=== PATIENT | male | born 1980 | race Caucasian/White ===

== ENCOUNTER 2016-09-01 16:40 | Emergency (ER) | payer OTHER ==
[2016-09-01 17:26] LABS: HEMOGLOBIN 16.9 gm/dl (14.0-17.5); RED BLOOD COUNT 5.74 M/UL (4.20-5.50); WHITE BLOOD COUNT 7.4 K/UL (4.5-11.0)
[2016-09-01 17:44] LABS: BUN/CREATININE RATIO 8 (0-10)
[2016-09-16] MEDS ORDERED: PRINIVIL10 MG PO (05:07)
[2016-09-16] MEDS ORDERED: PROTONIX 40 MG40 M1 PO (05:08)
[2016-09-16] MEDS ORDERED: PROMETHAZINE HC25 M1 PO (05:09)
[2016-09-16] MEDS ORDERED: FLEXERIL 10 MG10 MG PO (05:42)
[2016-09-17] MEDS ORDERED: BENTYL 10MG CAP10 MG PO (15:33)
[2016-09-17] MEDS ORDERED: PROTONIX40 MG PO (15:34)
[2016-09-17] MEDS ORDERED: CLONIDINE HCL0.1 MG PO (15:39)
== END 2016-09-01 18:34 | disposition home or self-care (01) ==
LOC: ER1 16:40
PROVIDERS: Physician Assistant Medical
DX: S29.012A Strain of muscle and tendon of back wall of thorax, initial encounter (principal); I10 Essential (primary) hypertension; F17.210 Nicotine dependence, cigarettes, uncomplicated; X50.9XXA Other and unspecified overexertion or strenuous movements or postures, initial encounter; Y93.89 Activity, other specified
CPT/HCPCS: 36415; 72072; 80053; 85025; 96372; 99284; C9113; J2270; J2405

== ENCOUNTER 2016-09-01 23:55 | Emergency (ER) | payer OTHER ==
[2016-09-02 02:24] LABS: HEMOGLOBIN 15.8 gm/dl (14.0-17.5); RED BLOOD COUNT 5.36 M/UL (4.20-5.50)
[2016-09-02 02:35] LABS: WHITE BLOOD COUNT 12.1 K/UL (4.5-11.0)
[2016-09-16] MEDS ORDERED: PRINIVIL10 MG PO (05:07)
[2016-09-16] MEDS ORDERED: PROTONIX 40 MG40 M1 PO (05:08)
[2016-09-16] MEDS ORDERED: PROMETHAZINE HC25 M1 PO (05:09)
[2016-09-16] MEDS ORDERED: FLEXERIL 10 MG10 MG PO (05:42)
[2016-09-17] MEDS ORDERED: BENTYL 10MG CAP10 MG PO (15:33)
[2016-09-17] MEDS ORDERED: PROTONIX40 MG PO (15:34)
[2016-09-17] MEDS ORDERED: CLONIDINE HCL0.1 MG PO (15:39)
== END 2016-09-02 10:08 ==
LOC: ER1 23:55
PROVIDERS: Student in an Organized Health Care Education/Training Program
DX: K92.2 Gastrointestinal hemorrhage, unspecified (principal); N28.9 Disorder of kidney and ureter, unspecified; Z90.49 Acquired absence of other specified parts of digestive tract; F17.210 Nicotine dependence, cigarettes, uncomplicated
CPT/HCPCS: 36415; 80053; 82150; 83690; 85025; 96361; 96374; 96375; 99284; J7030

== ENCOUNTER → 2021-10-17 | Outpatient (CLI) | payer OTHER ==
[~2021-10-17] MED LIST: BENTYL 10MG CAP10 MG PO; CARAFATE1 GM PO; CLONIDINE HCL0.1 MG PO; FLEXERIL 10 MG10 MG PO; PRINIVIL10 MG PO; PROMETHAZINE HC25 M1 PO; PROTONIX 40 MG40 M1 PO; PROTONIX40 MG PO; ZOFRAN ODT4 MG PO
== END ==
LOC: HEART 5 15:48
DX: I49.9 Cardiac arrhythmia, unspecified (principal)

== ENCOUNTER → 2021-11-23 | Outpatient (CLI) | payer OTHER | LOC: MRI 13:09 | DX: R51.9 Headache, unspecified (principal) | CPT/HCPCS: 70553; A9577 ==